=== PATIENT | male | born 1990 | race Caucasian/White ===

== ENCOUNTER 2017-03-31 13:48 | Emergency (ER) | payer OTHER, BC ==
--- NOTE | 2017-03-31 14:58 | CR ---
Clinical history: 26-year-old male crushed injury left ring finger. Interpretation: Abnormal. Nondisplaced comminuted fracture distal phalanx primarily involving the terminal tuft left fourth (ri ng) finger. Fracture does not involve the DIP joint and there are no other fractures proximally this finger or in volving the adjacent middle/small fingers left hand. No foreign bodies.
--- NOTE | 2017-03-31 15:00 | EDM.PDOC ---
ED HPI GENERAL MEDICAL PROBLEM - General Chief Complaint: Upper Extremity Injury/Pain Stated Complaint: [id number] SMASHED THUMB WORK COMP FED Time Seen by Provider: 03/31/17 14:30 Source of Information: Reports: Patient, RN, RN Notes Reviewed History Limitations: Reports: No Limitations - History of Present Illness INITIAL COMMENTS - FREE TEXT/NARRATIVE: Pt presents to the ER with c/o pain in the left ring finger. Pt states he crushed his finger between a jet weighing approximately 260 lbs and a work bench. Pt denies any other problems at this time. Onset: Today, Sudden Location: Reports: Upper Extremity, Left Quality: Reports: Ache, Throbbing Severity: Moderate Improves with: Reports: None Worsens with: Reports: None Associated Symptoms: Reports: No Other Symptoms Left 4-Ring finger Pain Score (Numeric/FACES): 7 - Related Data Allergies Allergy/AdvReac Type Severity Reaction Status Date / Time No Known Allergies Allergy Verified 03/31/17 14:07 Home Meds: Home Meds . [No Known Home Meds] 03/31/17 [History] Past Medical History - Past Health History Medical/Surgical History: Denies Medical/Surgical History Social & Family History - Tobacco Use Smoking Status *Q: Never Smoker Second Hand Smoke Exposure: No - Caffeine Use Caffeine Use: Reports: Coffee, Energy Drinks, Soda - Alcohol Use Days Per Week of Alcohol Use: 2 Number of Drinks Per Day: 2 Total Drinks Per Week: 4 - Recreational Drug Use Recreational Drug Use: No Review of Systems - Review of Systems Review Of Systems: ROS reveals no pertinent complaints other than HPI. ED EXAM, GENERAL - Physical Exam Exam: See Below Exam Limited By: No Limitations General Appearance: Alert, WD/WN, No Apparent Distress Eye Exam: Bilateral Eye: Normal Inspection Ears: Normal External Exam, Hearing Grossly Normal Nose: Normal Inspection Throat/Mouth: Normal Inspection, Normal Voice, No Airway Compromise Head: Atraumatic, Normocephalic Neck: Normal Inspection, Supple, Non-Tender, Full Range of Motion Respiratory/Chest: No Respiratory Distress, Lungs Clear, Normal Breath Sounds, No Accessory Muscle Use, Chest Non-Tender Cardiovascular: Normal Peripheral Pulses, Regular Rate, Rhythm, No Edema, No Gallop, No JVD, No Murmur, No Rub Peripheral Pulses: 2+: Radial (L), Radial (R) GI/Abdominal: Normal Bowel Sounds, Soft, Non-Tender, No Organomegaly, No Distention, No Abnormal Bruit, No Mass (Male) Exam: Deferred Rectal (Males) Exam: Deferred Back Exam: Normal Inspection, Full Range of Motion, NT Extremities: Normal Inspection, Normal Range of Motion, No Pedal Edema, Normal Capillary Refill, Other (swelling and ecchymosis to left distal ring finger) Neurological: Alert, Oriented, Normal Cognition, Normal Gait, No Motor/Sensory Deficits Psychiatric: Normal Affect, Normal Mood Skin Exam: Ecchymosis (left distal ring finger) Lymphatic: No Adenopathy ED TRAUMA EXTREMITY PROCEDURES - Splinting Left 4th Digit Splint Site: left ring finger Pre-Procedure NV Status: Normal Post-Procedure NV Status: Normal Splint Material: Aluminum-Foam Splint Design: Volar Applied & Form Fitted By: Provider Provider Post-Splint Application NV Check: NV Status Normal, Good Position Complications: No Course - Vital Signs Last Recorded V/S: Last Vital Signs Temp 97.6 F 03/31/17 14:02 Pulse 88 03/31/17 14:02 Resp 16 03/31/17 14:02 BP 128/81 03/31/17 14:02 Pulse Ox 96 03/31/17 14:02 - Radiology Interpretation Free Text/Narrative:: Left ring finger fracture of distal phalynx See rad report Departure - Departure Time of Disposition: 14:57 Disposition: Home, Self-Care 01 Condition: Good Clinical Impression: Fracture of finger of left hand Qualifiers: Encounter type: initial encounter Finger: ring finger Fracture type: closed Phalanx: distal Fracture alignment: nondisplaced Qualified Code(s): S62.665A - Nondisplaced fracture of distal phalanx of left ring finger, initial encounter for closed fracture - Discharge Information Instructions: Finger Fracture, [id number], Crush Injury, Fingers or Toes, [id number] Referrals: PCP,None [Primary Care Provider] - Forms: ED Department Discharge Additional Instructions: Keep splint on for 15 days. May remove to wash. Follow up with your primary care facility in the next 2 weeks. Acetaminophen or ibuprofen as directed for pain.
== END 2017-03-31 15:11 | disposition home or self-care (01) ==
LOC: DL.ED 13:48
DX: S62.665A Nondisplaced fracture of distal phalanx of left ring finger, initial encounter for closed fracture (principal); W23.0XXA Caught, crushed, jammed, or pinched between moving objects, initial encounter
CPT/HCPCS: 73140; 99283; L3999